=== PATIENT | female | born 1995 | race African-American/Black ===

== ENCOUNTER 2017-11-07 12:04 | Emergency (ER) | payer OTHER ==
[~2017-11-07] VITALS: Ht 160 cm; Wt 68.9 kg
[2017-11-07 12:14] VITALS: Ht 160 cm; Wt 68.9 kg
[2017-11-07 14:25] VITALS: BP 109/71
== END 2017-11-07 15:44 | disposition home or self-care (01) ==
LOC: ED 12:04
DX: L02.413 Cutaneous abscess of right upper limb (principal)
CPT/HCPCS: J2001